=== PATIENT | female | born 1950 | race Caucasian/White ===

== ENCOUNTER → 2019-05-25 08:23 | Outpatient (CLI) | payer MEDICARE, SELFPAY ==
[2019-05-25 09:09] LABS: Add Manual Diff / Slide Review NO; Basophils Absolute Auto 100 /uL (0-100); Basophils Percent Auto 1.3 % (0-2); Eosinophils Absolute Auto 100 /uL (0-450); Eosinophils Percent Auto 2.6 % (2-4); Hematocrit 43.5 % (36-46); Hemoglobin 14.5 g/dL (12.0-16.0); Lymphocytes Absolute Auto 1500 /uL (1100-4500); Lymphocytes Percent Auto 27.7 % (25-40); Mean Corpuscular HGB Conc 33.4 % (30-36); Mean Corpuscular Hemoglobin 30.1 PG (26-34); Monocytes Absolute Auto 500 /uL (0-900); Monocytes Percent Auto 8.4 % (3-14); Neutrophils Absolute Auto 3200 /uL (1500-7000); Platelet Count 258 X10^3/uL (150-400); Red Blood Cell Count 4.83 X10^6/uL (4.0-5.2); White Blood Cell Count 5.4 X10^3/uL (4.5-11.0)
== END ==
PROVIDERS: Visit Provider Otolaryngology Facial Plastic Surgery
DX: Z01.818 Encounter for other preprocedural examination (principal); J34.3 Hypertrophy of nasal turbinates
CPT/HCPCS: 36415; 85025; 93005

== ENCOUNTER 2020-11-12 13:30 | Outpatient (RCR) | payer MEDICARE, SELFPAY ==
--- NOTE | 2020-10-07 15:57 | PT.OPPOC ---
Physical, Occupational & Speech Therapy At Located Within [facility] Current Diagnoses Cystocele, unspecified (10/07/20) Visit Care Team Role Provider Type Lani Pablo MD Attending Provider Physician Primary Care Provider Referring Provider Specialty: Internal Medicine Address: [address] [place] [address], [id number] Email: [email or web address] Plan Of Care PT-OP-T Assessment and Plan Start: 10/07/20 08:12 Freq: Status: Active Protocol: Document 10/07/20 13:30 AMB (Rec: 10/07/20 15:57 AMB [email or web address]) Physical Therapy Assessment Rehab Potential Rehabilitation Potential Good Evaluation Complexity Number of Personal Factors/Comorbidities 0 Number of Body Systems Impaired 1-2 Clinical Presentation at Evaluation Stable Impairments Impairments Strength Goals Two Impairment Urinary frequency Short Term Goal (STG) Kristy will use urge suppression techniques to decrease her urgency so that she can wait approximately 2 hours between voids. STG Duration 4 weeks One Impairment Prolapse Short Term Goal (STG) Kristy will be independent with a pelvic floor exercise program to improve her pelvic floor strength. STG Duration 4 weeks [employer] Goal (LTG) Kristy will improve her pelvic floor strength so that she can perform a kegel in standing for 10 seconds without compensation and without holding her breath. LTG Duration 8 weeks Assessment Summary Assessment Kristy attends physical therapy with prolapse sx that have been present for a few years, but then recently her urgency and frequency has worsened. She denies urinary leaking. She presents with poor pelvic floor strength, and woud benefit from physical therapy with a focus on pelvic floor strengthening and urinary frequency and heaviness symptom reduction. Physical Therapy Plan Frequency and Duration Frequency of Treatment 1x/Week Duration of Treatment 8 weeks Plan of Care Start Date 10/07/20 Plan of Care End Date 12/02/20 Therapeutic Interventions Therapeutic Interventions Home Exercise Program,Manual Therapy,Neuromuscular Re- education,Self-Care/Home Management,Therapeutic Activities,Therapeutic Exercises Modalities Biofeedback,Electric Stimulation Next Visit Focus/Plan Next Note Type Treatment Note Next Visit Plan Follow up on bladder diary, can work on sEMG, urge reduction Plan of Care Dates Plan of Care Start Date 10/07/20 Plan of Care End Date 12/02/20 Electronically Signed by: Flaquita Escoto, PT 10/07/20 [id number] Please Sign and Return: I have reviewed this Plan of Care and certify that the skilled therapy services above are required to meet the patient?s needs. Physician Signature Date Printed Name and Credentials Clinical Instructor Signature Printed Name and Credentials
--- NOTE | 2020-10-07 15:58 | PT.OIE ---
Current Diagnoses Cystocele, unspecified (10/07/20) Visit Care Team Role Provider Type Lani Pablo MD Attending Provider Physician Primary Care Provider Referring Provider Specialty: Internal Medicine Address: [address] [place] [address], [facility] Email: [email or web address] Physical Therapy Initial Evaluation PT-OP-A Visit Information Start: 10/07/20 08:12 Freq: Status: Active Protocol: Document 10/07/20 13:30 AMB (Rec: 10/07/20 15:57 AMB [email or web address]) Out-Patient Physical Therapy Visit Information Visit Information Visit Type Initial Evaluation Visit Start Time 13:30 Visit Stop Time 14:15 Total Visit Minutes 45 Visit Number 1 PT-OP-B Current Condition Start: 10/07/20 08:12 Freq: Status: Active Protocol: Document 10/07/20 13:30 AMB (Rec: 10/07/20 14:18 AMB [id number]) Current Condition History of Current Condition Onset Date 2 years ago Current Complaints prolapse History of Current Condition Yardwork, lifting increases feeling of prolapse. Frequency of urination started recently feels the need to go to the bathroom after 30 minutes. 2 live , first was a forceps delivery. Chronic bronchitis history. Denies nocturia, does drink a lot of water, tea, coffee. Denies leaks. Treatment Goals Patient/Caregiver Goals Reduce urinary frequency urgency/ learn exercises to reduce prolapse PT-OP-C Subjective Start: 10/07/20 08:12 Freq: Status: Active Protocol: Document 10/07/20 13:30 AMB (Rec: 10/07/20 15:57 AMB [email or web address]) Patient Questionnaires Pelvic Pain and Urgency/Frequency Patient Symptom Scale Pelvic Pain Score 5 PT-OP-I Pelvic Floor Start: 10/07/20 08:12 Freq: Status: Active Protocol: Document 10/07/20 13:30 AMB (Rec: 10/07/20 15:57 AMB [email or web address]) Pelvic Floor Assessment Urine Pelvic Floor Surgery No Urinary Symptoms Urge Sensation,Prolapse, Falling Out Feeling/Heavy Voiding Frequency 12-15x/day Nocturia 0 Bowel Bowel Surgery No Other Bowel Symptoms denies constipation Pelvic Clock Pelvic Clock 12-3 Atrophy Pelvic Clock 3-6 Atrophy Pelvic Clock 6-9 Atrophy Pelvic Clock 9-12 Atrophy Prolapse Cystocele Grade 3 Rectocele Grade 2 Perineal Descent Resting Present Bearing Present Contraction Ability Voluntary Contraction Weak Voluntary Relaxation Moderate Manual Muscle Testing Left 1 Manual Muscle Testing Right 1 Manual Muscle Testing Anterior 1 Manual Muscle Testing Posterior 2 Muscle Endurance (Seconds) 3 Number of Quick Contractions In 10 4 Seconds Comments Pelvic Floor Comments poor use of levator ani, tends to hold her breath PT-OP-T Assessment and Plan Start: 10/07/20 08:12 Freq: Status: Active Protocol: Document 10/07/20 13:30 AMB (Rec: 10/07/20 15:57 AMB [email or web address]) Physical Therapy Assessment Rehab Potential Rehabilitation Potential Good Evaluation Complexity Number of Personal Factors/Comorbidities 0 Number of Body Systems Impaired 1-2 Clinical Presentation at Evaluation Stable Impairments Impairments Strength Goals Two Impairment Urinary frequency Short Term Goal (STG) Kristy will use urge suppression techniques to decrease her urgency so that she can wait approximately 2 hours between voids. STG Duration 4 weeks One Impairment Prolapse Short Term Goal (STG) Kristy will be independent with a pelvic floor exercise program to improve her pelvic floor strength. STG Duration 4 weeks Perianesthesia Nurse Goal (LTG) Kristy will improve her pelvic floor strength so that she can perform a kegel in standing for 10 seconds without compensation and without holding her breath. LTG Duration 8 weeks Assessment Summary Assessment Kristy attends physical therapy with prolapse sx that have been present for a few years, but then recently her urgency and frequency has worsened. She denies urinary leaking. She presents with poor pelvic floor strength, and woud benefit from physical therapy with a focus on pelvic floor strengthening and urinary frequency and heaviness symptom reduction. Physical Therapy Plan Frequency and Duration Frequency of Treatment 1x/Week Duration of Treatment 8 weeks Plan of Care Start Date 10/07/20 Plan of Care End Date 12/02/20 Therapeutic Interventions Therapeutic Interventions Home Exercise Program,Manual Therapy,Neuromuscular Re- education,Self-Care/Home Management,Therapeutic Activities,Therapeutic Exercises Modalities Biofeedback,Electric Stimulation Next Visit Focus/Plan Next Note Type Treatment Note Next Visit Plan Follow up on bladder diary, can work on sEMG, urge reduction
--- NOTE | 2020-10-23 15:21 | PT.OTN ---
Current Diagnoses Cystocele, unspecified (10/23/20) Physical Therapy Treatment Note PT-OP-A Visit Information Start: 10/07/20 08:12 Freq: Status: Active Protocol: Document 10/23/20 13:40 AMB (Rec: 10/23/20 14:23 AMB [id number]) Out-Patient Physical Therapy Visit Information Visit Information Visit Type Treatment Note Visit Start Time 13:30 Visit Stop Time 14:15 Total Visit Minutes 45 Visit Number 2 PT-OP-B Current Condition Start: 10/07/20 08:12 Freq: Status: Active Protocol: Document 10/07/20 13:30 AMB (Rec: 10/07/20 14:18 AMB [id number]) Current Condition History of Current Condition Onset Date 2 years ago Current Complaints prolapse History of Current Condition Yardwork, lifting increases feeling of prolapse. Frequency of urination started recently feels the need to go to the bathroom after 30 minutes. 2 live , first was a forceps delivery. Chronic bronchitis history. Denies nocturia, does drink a lot of water, tea, coffee. Denies leaks. Treatment Goals Patient/Caregiver Goals Reduce urinary frequency urgency/ learn exercises to reduce prolapse PT-OP-C Subjective Start: 10/07/20 08:12 Freq: Status: Active Protocol: Document 10/23/20 13:40 AMB (Rec: 10/23/20 14:23 AMB [id number]) OP-PT Subjective Patient Comments Patient Comments Pt has been doing her exercises every day 3 times per day. Doesn't feel pressure with prolapse, feels more PT-OP-I Pelvic Floor Start: 10/07/20 08:12 Freq: Status: Active Protocol: Document 10/07/20 13:30 AMB (Rec: 10/07/20 15:57 AMB [email or web address]) Pelvic Floor Assessment Urine Pelvic Floor Surgery No Urinary Symptoms Urge Sensation,Prolapse, Falling Out Feeling/Heavy Voiding Frequency 12-15x/day Nocturia 0 Bowel Bowel Surgery No Other Bowel Symptoms denies constipation Pelvic Clock Pelvic Clock 12-3 Atrophy Pelvic Clock 3-6 Atrophy Pelvic Clock 6-9 Atrophy Pelvic Clock 9-12 Atrophy Prolapse Cystocele Grade 3 Rectocele Grade 2 Perineal Descent Resting Present Bearing Present Contraction Ability Voluntary Contraction Weak Voluntary Relaxation Moderate Manual Muscle Testing Left 1 Manual Muscle Testing Right 1 Manual Muscle Testing Anterior 1 Manual Muscle Testing Posterior 2 Muscle Endurance (Seconds) 3 Number of Quick Contractions In 10 4 Seconds Comments Pelvic Floor Comments poor use of levator ani, tends to hold her breath PT-OP-Q Treatments Start: 10/07/20 08:12 Freq: Status: Active Protocol: Document 10/23/20 13:30 AMB (Rec: 10/23/20 15:20 AMB [email or web address]) Therapeutic Exercises Supine Exercises 1 Supine Exercise Name roll in Reps/Minutes 10 Neuro Re-Education Treatment Other Activities 1 Details sEMG Comments hooklying PT-OP-T Assessment and Plan Start: 10/07/20 08:12 Freq: Status: Active Protocol: Document 10/23/20 13:30 AMB (Rec: 10/23/20 15:20 AMB [email or web address]) Physical Therapy Assessment Assessment Summary Assessment Bladder diary actually looked normal. Pt with difficulty engaging without using abdomen , difficulty holding contraction for full count of 10. Max 18, avg 5. Physical Therapy Plan Next Visit Focus/Plan Next Note Type Treatment Note Next Visit Plan Follow up on roll in exercises .
--- NOTE | 2020-10-29 08:11 | PT.OTN ---
Current Diagnoses Cystocele, unspecified (10/29/20) Physical Therapy Treatment Note PT-OP-A Visit Information Start: 10/07/20 08:12 Freq: Status: Active Protocol: Document 10/29/20 07:30 AMB (Rec: 10/29/20 08:11 AMB [id number]) Out-Patient Physical Therapy Visit Information Visit Information Visit Type Treatment Note Visit Start Time 07:30 Visit Stop Time 08:15 Total Visit Minutes 45 Visit Number 3 PT-OP-B Current Condition Start: 10/07/20 08:12 Freq: Status: Active Protocol: Document 10/07/20 13:30 AMB (Rec: 10/07/20 14:18 AMB [id number]) Current Condition History of Current Condition Onset Date 2 years ago Current Complaints prolapse History of Current Condition Yardwork, lifting increases feeling of prolapse. Frequency of urination started recently feels the need to go to the bathroom after 30 minutes. 2 live , first was a forceps delivery. Chronic bronchitis history. Denies nocturia, does drink a lot of water, tea, coffee. Denies leaks. Treatment Goals Patient/Caregiver Goals Reduce urinary frequency urgency/ learn exercises to reduce prolapse PT-OP-C Subjective Start: 10/07/20 08:12 Freq: Status: Active Protocol: Document 10/29/20 07:30 AMB (Rec: 10/29/20 08:11 AMB [id number]) OP-PT Subjective Patient Comments Patient Comments Pt had difficulty with the roll in exercises, so didn't use the ball/ towel roll and just did an isometric and that worked ok. PT-OP-I Pelvic Floor Start: 10/07/20 08:12 Freq: Status: Active Protocol: Document 10/07/20 13:30 AMB (Rec: 10/07/20 15:57 AMB [email or web address]) Pelvic Floor Assessment Urine Pelvic Floor Surgery No Urinary Symptoms Urge Sensation,Prolapse, Falling Out Feeling/Heavy Voiding Frequency 12-15x/day Nocturia 0 Bowel Bowel Surgery No Other Bowel Symptoms denies constipation Pelvic Clock Pelvic Clock 12-3 Atrophy Pelvic Clock 3-6 Atrophy Pelvic Clock 6-9 Atrophy Pelvic Clock 9-12 Atrophy Prolapse Cystocele Grade 3 Rectocele Grade 2 Perineal Descent Resting Present Bearing Present Contraction Ability Voluntary Contraction Weak Voluntary Relaxation Moderate Manual Muscle Testing Left 1 Manual Muscle Testing Right 1 Manual Muscle Testing Anterior 1 Manual Muscle Testing Posterior 2 Muscle Endurance (Seconds) 3 Number of Quick Contractions In 10 4 Seconds Comments Pelvic Floor Comments poor use of levator ani, tends to hold her breath PT-OP-Q Treatments Start: 10/07/20 08:12 Freq: Status: Active Protocol: Document 10/29/20 07:30 AMB (Rec: 10/29/20 08:11 AMB [id number]) Therapeutic Exercises Sitting Exercises 1 Sitting Exercise Name sit to stand with pelvic floor contraction Neuro Re-Education Treatment Other Activities 1 Details sEMG Comments hooklying PT-OP-T Assessment and Plan Start: 10/07/20 08:12 Freq: Status: Active Protocol: Document 10/29/20 07:30 AMB (Rec: 10/29/20 08:11 AMB [id number]) Physical Therapy Assessment Assessment Summary Assessment MAx 18, avg 5 over sEMG. Physical Therapy Plan Next Visit Focus/Plan Next Note Type Treatment Note Next Visit Plan Follow up on roll in exercises , doing pelvic exercises with movement.
--- NOTE | 2020-11-05 15:02 | PT.OTN ---
Current Diagnoses Cystocele, unspecified (11/05/20) Physical Therapy Treatment Note PT-OP-A Visit Information Start: 10/07/20 08:12 Freq: Status: Active Protocol: Document 11/05/20 07:30 AMB (Rec: 11/05/20 08:16 AMB [id number]) Out-Patient Physical Therapy Visit Information Visit Information Visit Type Treatment Note Visit Start Time 07:30 Visit Stop Time 08:15 Total Visit Minutes 45 Visit Number 4 PT-OP-B Current Condition Start: 10/07/20 08:12 Freq: Status: Active Protocol: Document 10/07/20 13:30 AMB (Rec: 10/07/20 14:18 AMB [id number]) Current Condition History of Current Condition Onset Date 2 years ago Current Complaints prolapse History of Current Condition Yardwork, lifting increases feeling of prolapse. Frequency of urination started recently feels the need to go to the bathroom after 30 minutes. 2 live , first was a forceps delivery. Chronic bronchitis history. Denies nocturia, does drink a lot of water, tea, coffee. Denies leaks. Treatment Goals Patient/Caregiver Goals Reduce urinary frequency urgency/ learn exercises to reduce prolapse PT-OP-C Subjective Start: 10/07/20 08:12 Freq: Status: Active Protocol: Document 11/05/20 07:30 AMB (Rec: 11/05/20 08:16 AMB [id number]) OP-PT Subjective Patient Comments Patient Comments Pt could definitely feel prolapse after being constipated and working for 7 hours and being on her feet yesterday, felt better today after able to have bowel movement. PT-OP-I Pelvic Floor Start: 10/07/20 08:12 Freq: Status: Active Protocol: Document 10/07/20 13:30 AMB (Rec: 10/07/20 15:57 AMB [email or web address]) Pelvic Floor Assessment Urine Pelvic Floor Surgery No Urinary Symptoms Urge Sensation,Prolapse, Falling Out Feeling/Heavy Voiding Frequency 12-15x/day Nocturia 0 Bowel Bowel Surgery No Other Bowel Symptoms denies constipation Pelvic Clock Pelvic Clock 12-3 Atrophy Pelvic Clock 3-6 Atrophy Pelvic Clock 6-9 Atrophy Pelvic Clock 9-12 Atrophy Prolapse Cystocele Grade 3 Rectocele Grade 2 Perineal Descent Resting Present Bearing Present Contraction Ability Voluntary Contraction Weak Voluntary Relaxation Moderate Manual Muscle Testing Left 1 Manual Muscle Testing Right 1 Manual Muscle Testing Anterior 1 Manual Muscle Testing Posterior 2 Muscle Endurance (Seconds) 3 Number of Quick Contractions In 10 4 Seconds Comments Pelvic Floor Comments poor use of levator ani, tends to hold her breath PT-OP-Q Treatments Start: 10/07/20 08:12 Freq: Status: Active Protocol: Document 11/05/20 07:30 AMB (Rec: 11/05/20 08:16 AMB [id number]) Therapeutic Exercises Sitting Exercises 1 Sitting Exercise Name roll out Resistance #3 tband Reps/Minutes 1x12 Standing Exercises 3 Standing Exercise Name mini lunge in standing with pelvic floor hold Reps/Minutes 10 2 Standing Exercise Name lifting 10 pounds from floor to waist height with pelvic floor contract Reps/Minutes 20 1 Standing Exercise Name quick flick and long hold in standing Reps/Minutes 2x20 PT-OP-T Assessment and Plan Start: 10/07/20 08:12 Freq: Status: Active Protocol: Document 11/05/20 07:30 AMB (Rec: 11/05/20 08:16 AMB [id number]) Physical Therapy Assessment Goals Two Impairment Urinary frequency Short Term Goal (STG) Kristy will use urge suppression techniques to decrease her urgency so that she can wait approximately 2 hours between voids. STG Duration MET One Impairment Prolapse Short Term Goal (STG) Kristy will be independent with a pelvic floor exercise program to improve her pelvic floor strength. STG Duration 4 weeks Alf Goal (LTG) Kristy will improve her pelvic floor strength so that she can perform a kegel in standing for 10 seconds without compensation and without holding her breath. LTG Duration 8 weeks Assessment Summary Assessment Progressed exercises into standing/lifting today and Kristy tolerated well. Recheck next visit and discuss if continued therapy is necessary or if d/c is possible if pt is doing well and sx continuing to resolve. Physical Therapy Plan Next Visit Focus/Plan Next Visit Plan d/c if pt doing well, continued tx if pt has continued questions
--- NOTE | 2020-11-12 14:34 | PT.OTN ---
Current Diagnoses Cystocele, unspecified (11/12/20) Physical Therapy Treatment Note PT-OP-A Visit Information Start: 10/07/20 08:12 Freq: Status: Active Protocol: Document 11/12/20 13:30 AMB (Rec: 11/12/20 14:34 AMB [id number]) Out-Patient Physical Therapy Visit Information Visit Information Visit Type Treatment Note Visit Start Time 07:30 Visit Stop Time 08:15 Total Visit Minutes 45 Visit Number 5 PT-OP-B Current Condition Start: 10/07/20 08:12 Freq: Status: Active Protocol: Document 10/07/20 13:30 AMB (Rec: 10/07/20 14:18 AMB [id number]) Current Condition History of Current Condition Onset Date 2 years ago Current Complaints prolapse History of Current Condition Yardwork, lifting increases feeling of prolapse. Frequency of urination started recently feels the need to go to the bathroom after 30 minutes. 2 live , first was a forceps delivery. Chronic bronchitis history. Denies nocturia, does drink a lot of water, tea, coffee. Denies leaks. Treatment Goals Patient/Caregiver Goals Reduce urinary frequency urgency/ learn exercises to reduce prolapse PT-OP-C Subjective Start: 10/07/20 08:12 Freq: Status: Active Protocol: Document 11/12/20 13:30 AMB (Rec: 11/12/20 14:34 AMB [id number]) OP-PT Subjective Patient Comments Patient Comments Pt is ready for d/c. Feels she should be able to progress on her own at this point. PT-OP-I Pelvic Floor Start: 10/07/20 08:12 Freq: Status: Active Protocol: Document 10/07/20 13:30 AMB (Rec: 10/07/20 15:57 AMB [email or web address]) Pelvic Floor Assessment Urine Pelvic Floor Surgery No Urinary Symptoms Urge Sensation,Prolapse, Falling Out Feeling/Heavy Voiding Frequency 12-15x/day Nocturia 0 Bowel Bowel Surgery No Other Bowel Symptoms denies constipation Pelvic Clock Pelvic Clock 12-3 Atrophy Pelvic Clock 3-6 Atrophy Pelvic Clock 6-9 Atrophy Pelvic Clock 9-12 Atrophy Prolapse Cystocele Grade 3 Rectocele Grade 2 Perineal Descent Resting Present Bearing Present Contraction Ability Voluntary Contraction Weak Voluntary Relaxation Moderate Manual Muscle Testing Left 1 Manual Muscle Testing Right 1 Manual Muscle Testing Anterior 1 Manual Muscle Testing Posterior 2 Muscle Endurance (Seconds) 3 Number of Quick Contractions In 10 4 Seconds Comments Pelvic Floor Comments poor use of levator ani, tends to hold her breath PT-OP-Q Treatments Start: 10/07/20 08:12 Freq: Status: Active Protocol: Document 11/12/20 13:30 AMB (Rec: 11/12/20 14:34 AMB [id number]) Therapeutic Exercises Sitting Exercises 1 Sitting Exercise Name roll out Resistance #3 tband Reps/Minutes 1x12 Standing Exercises 3 Standing Exercise Name full lunge in standing with pelvic floor hold Reps/Minutes 10 1 Standing Exercise Name quick flick and long hold in standing Reps/Minutes 2x20 PT-OP-T Assessment and Plan Start: 10/07/20 08:12 Freq: Status: Active Protocol: Document 11/12/20 13:30 AMB (Rec: 11/12/20 14:34 AMB [id number]) Physical Therapy Assessment Goals Two Impairment Urinary frequency Short Term Goal (STG) Kristy will use urge suppression techniques to decrease her urgency so that she can wait approximately 2 hours between voids. STG Duration MET One Impairment Prolapse Short Term Goal (STG) Kristy will be independent with a pelvic floor exercise program to improve her pelvic floor strength. STG Duration MET [employer] Goal (LTG) Kristy will improve her pelvic floor strength so that she can perform a kegel in standing for 10 seconds without compensation and without holding her breath. LTG Duration MET Assessment Summary Assessment Kristy can continue to feel her prolapse when in the shower after an 8 hour shift, but not generally after a 4 hour shift. Encouraged Kristy to work on strengthening more in standing and at work, as she was able to do so today. All questions answered, and she should be able to progress independently at this time. Physical Therapy Plan Discharge Physical Therapy Discharge Reasons Goals Met
== END 2020-11-13 08:18 | disposition home or self-care (01) ==
LOC: PHYS 13:30
PROVIDERS: PCP Internal Medicine; Referring Provider Internal Medicine; Visit Provider Internal Medicine
DX: N81.10 Cystocele, unspecified (principal)
CPT/HCPCS: 97110; 97112; 97161

== ENCOUNTER → 2020-11-14 08:19 | Outpatient (CLI) | payer MEDICARE, SELFPAY ==
[2020-11-14] MEDS: COVID-19 VACC, Ad26(JANSSEN)/PF 0.5 ML IM (08:26)
== END ==
PROVIDERS: PCP Internal Medicine; Visit Provider Internal Medicine
DX: Z23 Encounter for immunization (principal)
CPT/HCPCS: 0031A; 91303

== ENCOUNTER → 2022-10-27 14:36 | Outpatient (CLI) | payer MEDICARE, SELFPAY ==
--- NOTE | 2022-10-27 | DI.RAD.S_ITS ---
PROCEDURE: XR HAND LT MIN 3V INDICATIONS: ARTHRITIS TECHNIQUE: 3 views of the hand(s) acquired. COMPARISON: None. FINDINGS: Bones: No fractures or dislocations. Carpal bones are normally aligned. No suspicious bony lesions. 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 Mild 1st CMC joint osteoarthritis. Soft tissues: No suspicious soft tissue calcifications. 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 Dictated by: Nancy Ronquillo MD, PhD on 10/27/2022 at 15:19 Approved by: Nancy Ronquillo MD, PhD on 10/27/2022 at 15:20
--- NOTE | 2022-10-27 | DI.RAD.S_ITS ---
PROCEDURE: XR HAND RT MIN 3V INDICATIONS: ARTHRITIS TECHNIQUE: 3 views of the hand(s) acquired. COMPARISON: None. FINDINGS: Bones: No acute fracture or dislocations. No suspicious bony lesions. Severe osteoarthritic changes are present at the 1st CMC joint and at the DIP joints. Mild interphalangeal joint space narrowing is present at the PIP joints and IP joint. No periarticular osteopenia or suspicious bony erosions. Soft tissues: No suspicious soft tissue calcifications. IMPRESSION: Osteoarthritis. No findings to suggest erosive arthritis. Dictated by: Amanda Pinto M.D. on 10/27/2022 at 16:03 Approved by: Amanda Pinto M.D. on 10/27/2022 at 16:04
== END ==
PROVIDERS: Referring Provider Internal Medicine; Visit Provider Internal Medicine
DX: M18.0 Bilateral primary osteoarthritis of first carpometacarpal joints (principal); M19.042 Primary osteoarthritis, left hand; M19.041 Primary osteoarthritis, right hand
CPT/HCPCS: 73130

== ENCOUNTER → 2025-02-23 14:56 | Outpatient (CLI) | payer MEDICARE, SELFPAY ==
--- NOTE | 2025-02-23 14:59 | DI.US.S_ITS ---
PROCEDURE: US CAROTID DOPPLER BI INDICATIONS: CALCIFICATION RIGHT CAROTID ARTERY TECHNIQUE: Color and pulse Doppler interrogation was performed of both carotid systems, with image documentation and velocity measurements. COMPARISON: None. FINDINGS: Stenosis calculations are based on SRU ([employer] in [employer]) criteria. Right side: Brachial blood pressure: 170/89 mm Hg. Common carotid artery peak systolic velocity: 76 cm/sec. Internal carotid artery peak systolic velocity: 74 cm/sec. Internal carotid artery end diastolic velocity: 25 cm/sec. External carotid artery peak systolic velocity: 64 cm/sec. ICA/CCA peak systolic ratio: 0.98 . Davila scale imaging description: No significant plaque seen Percent internal carotid artery stenosis: Less than 50% . Vertebral artery: Flow direction is antegrade. Left side: Brachial blood pressure: 160/81 mm Hg. Common carotid artery peak systolic velocity: 72 cm/sec. Internal carotid artery peak systolic velocity: 92 cm/sec. Internal carotid artery end diastolic velocity: 34 cm/sec. External carotid artery peak systolic velocity: 72 cm/sec. ICA/CCA peak systolic ratio: 1.29 . Davila scale imaging description: No significant plaque seen Percent internal carotid artery stenosis: Less than 50% . Vertebral artery: Flow direction is antegrade. IMPRESSION: 1. In the right carotid artery, there is less than 50% stenosis based on peak systolic velocity criteria. 2. In the left carotid artery, there is less than 50% stenosis based on peak systolic velocity criteria. 3. Antegrade vertebral arteries. Dictated by: Leif Chin M.D. on 02/24/2025 at 19:35 Approved by: Leif Chin M.D. on 02/24/2025 at 19:37
== END ==
PROVIDERS: PCP Internal Medicine; Referring Provider Internal Medicine; Visit Provider Internal Medicine
DX: I65.23 Occlusion and stenosis of bilateral carotid arteries (principal)
CPT/HCPCS: 93880